=== PATIENT | female | born 1960 | race Two or more races ===

== ENCOUNTER 2016-05-07 18:16 | Emergency (ER) | payer SELFPAY ==
[~2016-05-07] VITALS: Ht 154.9 cm; Wt 62.6 kg
[~2016-05-07 18:16] MED LIST: BUDE10.2 IH; LISI-334 PO; METF500T4 PO; OMEP40CA5 PO; SIMV20TA3 PO; VENTOLIN HFA18 GM IH
[2016-05-07] MEDS ORDERED: IV NORMAL SALINE 1000ML BAG 1,000 ML IV SCH (19:29)
[2016-05-07] MEDS ORDERED: FENTANYL PF 100 MCG/2 ML VIAL. IV PRN (19:30)
[2016-05-07] MEDS ORDERED: ONDANSETRON PF 4 MG/2 ML VIAL. IV ONE (19:30)
[2016-05-07 19:38] LABS: BASO % 1 % (0-3); EOS % 3 % (0-3); HEMATOCRIT 36.5 % (36.0-47.0); HEMOGLOBIN 12.4 g/dL (12.0-15.5); LYMPH # 2.3 x10^3/uL (1.0-4.8); LYMPH % 26 % (24-48); MEAN CORPUSCULAR HEMOGLOBIN 29 pg (25-35); MEAN CORPUSCULAR HGB CONC 34 g/dL (31-37); MEAN CORPUSCULAR VOLUME 85 fL (79-100); MONO % 7 % (0-9); NEUT % 64 % (31-73); PLATELET COUNT 228 x10^3/uL (140-400); RED BLOOD COUNT 4.31 x10^6/uL (3.50-5.40); WHITE BLOOD COUNT 8.8 x10^3/uL (4.0-11.0)
[2016-05-07] MEDS ORDERED: FAMOTIDINE 20 MG/2 ML VIAL IVP ONE (20:00)
[2016-05-07 20:04] LABS: CALCIUM 11.1 mg/dL (8.5-10.1); CREATININE 0.6 mg/dL (0.6-1.0); GFR 103.8; POTASSIUM 4.3 mmol/L (3.5-5.1)
[2016-05-07 20:08] LABS: ALBUMIN 3.9 g/dL (3.4-5.0); ALBUMIN/GLOBULIN RATIO 1.1 (1.0-1.7); TOTAL BILIRUBIN 1.1 mg/dL (0.2-1.0); TOTAL PROTEIN 7.6 g/dL (6.4-8.2)
[2016-05-07 20:10] LABS: CKMB MASS 0.7 ng/mL (0.0-3.6); CREATINE KINASE 71 U/L (26-192)
[2016-05-07 20:49] LABS: BILIRUBIN,URINE NEGATIVE (NEG); GLUCOSE,URINE NEGATIVE (NEG); NITRITE,URINE NEGATIVE (NEG); PH,URINE 6.5; PROTEIN,URINE NEGATIVE (NEG-TRACE); UROBILINOGEN,URINE 0.2 mg/dL (0.2 mg/dL)
[2016-05-07 20:57] LABS: BACTERIA,URINE 0 /HPF (0-FEW); RBC,URINE RARE /HPF (0-2); SQUAMOUS EPITHELIAL CELL,UR OCC /LPF; WBC,URINE OCC /HPF (0-4)
[2016-05-07 21:58] VITALS: BP 105/58
--- NOTE | 2016-05-07 22:10 | RAD ---
Exam: Abdomen ultrasound Indication:upper abd pain Reason: epigastric and right upper quadrant abdominal pain, elevated bilirubin / Spl. Instructions: / History: Technique: Multiple realtime grayscale sonographic images were obtained over the abdomen. Static images were submitted for interpretation. Findings: The pancreas is poorly visualized due to overlying bowel gas. The IVC is patent. The aorta is normal in caliber. The liver is normal in size measuring 15.95 cm. There is increased echogenicity of the hepatic parenchyma compatible with diffuse fatty infiltration. No focal lesions are identified. The gallbladder is surgically absent. Common bile duct is within normal limits measuring 5-6 millimeters in diameter. The Right kidney is normal in size measuring 11.6 x 4.7 x 4.0 cm. There is no evidence for mass, nephrolithiasis, or hydronephrosis. No ascites is identified. Impression: - Diffuse fatty infiltration of the liver. - Prior cholecystectomy. Electronically signed by: Amol Neal (May 07, 2016 22:09:37)
--- NOTE | 2016-05-07 22:47 | PHYS DOC ---
Past Medical History Past Medical History: Asthma, Diabetes-Type II, GERD, High Cholesterol, Hypertension Past Surgical History: Cholecystectomy, Hysterectomy, Other Additional Past Surgical Histo: cyst removal from bilateral breasts Alcohol Use: None Drug Use: None Adult General Chief Complaint Chief Complaint: DIZZY/LIGHT HEADED HPI HPI Patient is a 55 year old female who presents with complaint of dizziness and generalized weakness. The patient states that she has been having symptoms over the past 4 days. Patient also notes that she has been having epigastric pain and bloating after eating. Patient has history of GERD and states that she had been on acid reducing medication in the past but is not taking it currently. Patient states that her dizziness gets worse if she sits up too quickly or turns her head too quickly. Patient describes the dizziness as a sensation of the room spinning. Patient states that she currently has 5 out of 10 pain in her upper abdomen. Patient has associated nausea but has not had vomiting or diarrhea. Patient denies any fevers. Review of Systems Review of Systems Constitutional: Generalized weakness, Denies fever or chills [] Eyes: Denies change in visual acuity, redness, or eye pain [] HENT: Denies nasal congestion or sore throat [] Respiratory: Denies cough or shortness of breath [] Cardiovascular: Denies chest pain or edema [] GI: Abdominal pain, nausea, denies vomiting, bloody stools or diarrhea [] : Denies dysuria or hematuria [] Musculoskeletal: Denies back pain or joint pain [] Integument: Denies rash or skin lesions [] Neurologic: Dizziness, denies focal weakness or sensory changes [] Endocrine: Denies polyuria or polydipsia [] Current Medications Current Medications Current Medications Medications (Trade) Dose Ordered Sig/Antoinette Start Time Stop Time Status Last Admin Dose Admin Famotidine (Pepcid) 20 mg 1X ONCE 05/07/16 20:00 05/07/16 20:01 DC 05/07/16 19:39 20 MG Fentanyl Citrate 50 mcg 50 mcg PRN Q15MIN PRN 05/07/16 19:30 05/07/16 23:20 DC 05/07/16 19:39 50 MCG Ondansetron HCl (Zofran) 4 mg 1X ONCE 05/07/16 19:30 05/07/16 19:34 DC 05/07/16 19:39 4 MG Sodium Chloride (Iv Sodium Chloride 0.9% 1000ml Bag) 1,000 ml @ 1,000 mls/hr Q1H 05/07/16 19:29 05/07/16 20:28 DC 05/07/16 19:38 1,000 MLS/HR Allergies Allergies Allergies Coded Allergies Type Severity Reaction Last Updated Verified No Known Drug Allergies 03/20/13 No Physical Exam Physical Exam Constitutional: Alert, afebrile, appears in mild discomfort. [] HENT: Normocephalic, atraumatic, bilateral external ears normal, oropharynx moist, no oral exudates, nose normal. [] Eyes: PERRLA, EOMI, conjunctiva normal, no discharge. [] Neck: Normal range of motion, no tenderness, supple, no stridor. [] Cardiovascular:Heart rate regular rhythm, no murmur [] Lungs & Thorax: Bilateral breath sounds clear to auscultation [] Abdomen: Bowel sounds normal, soft, mild epigastric tenderness palpation, no guarding or rebound tenderness, no masses, no pulsatile masses. [] Skin: Warm, dry, no erythema, no rash. [] Back: No tenderness, no CVA tenderness. [] Extremities: No tenderness, no cyanosis, no clubbing, ROM intact, no edema. [] Neurologic: Alert and oriented X 3, normal motor function, normal sensory function, no focal deficits noted. [] Current Patient Data Vital Signs Vital Signs Date Time Temp Pulse Resp B/P Pulse Ox O2 Delivery O2 Flow Rate FiO2 05/07/16 21:58 65 18 105/58 98 Room Air 05/07/16 18:25 98.4 98.4 Lab Values Laboratory Tests Test 05/07/16 18:40 05/07/16 20:45 White Blood Count 8.8x10^3/uL (4.0-11.0) Red Blood Count 4.31x10^6/uL (3.50-5.40) Hemoglobin 12.4g/dL (12.0-15.5) Hematocrit 36.5% (36.0-47.0) Mean Corpuscular Volume 85fL (79-100) Mean Corpuscular Hemoglobin 29pg (25-35) Mean Corpuscular Hemoglobin Concent 34g/dL (31-37) Red Cell Distribution Width 13.0% (11.5-14.5) Platelet Count 228x10^3/uL (140-400) Neutrophils (%) (Auto) 64% (31-73) Lymphocytes (%) (Auto) 26% (24-48) Monocytes (%) (Auto) 7% (0-9) Eosinophils (%) (Auto) 3% (0-3) Basophils (%) (Auto) 1% (0-3) Neutrophils # (Auto) 5.6x10^3uL (1.8-7.7) Lymphocytes # (Auto) 2.3x10^3/uL (1.0-4.8) Monocytes # (Auto) 0.6x10^3/uL (0.0-1.1) Eosinophils # (Auto) 0.2x10^3/uL (0.0-0.7) Basophils # (Auto) 0.0x10^3/uL (0.0-0.2) Sodium Level 139mmol/L (136-145) Potassium Level 4.3mmol/L (3.5-5.1) Chloride Level 103mmol/L (98-107) Carbon Dioxide Level 28mmol/L (21-32) Anion Gap 8 (6-14) Blood Urea Nitrogen 14mg/dL (7-20) Creatinine 0.6mg/dL (0.6-1.0) Estimated GFR (Cockcroft-Gault) 103.8 BUN/Creatinine Ratio 23 (6-20) H Glucose Level 158mg/dL (70-99) H Calcium Level 11.1mg/dL (8.5-10.1) H Total Bilirubin 1.1mg/dL (0.2-1.0) H Aspartate Amino Transferase (AST) 14U/L (15-37) L Alanine Aminotransferase (ALT) 25U/L (14-59) Alkaline Phosphatase 132U/L (46-116) H Creatine Kinase 71U/L (26-192) Creatine Kinase MB (Mass) 0.7ng/mL (0.0-3.6) Creatine Kinase MB Relative Index % (0-4) Troponin I Quantitative < 0.017ng/mL (0.000-0.055) Total Protein 7.6g/dL (6.4-8.2) Albumin 3.9g/dL (3.4-5.0) Albumin/Globulin Ratio 1.1 (1.0-1.7) Lipase 129U/L (73-393) Urine Color Yellow Urine Clarity Clear Urine pH 6.5 Urine Specific [place] <=1.005 Urine Protein Negativemg/dL (NEG-TRACE) Urine Glucose (UA) Negativemg/dL (NEG) Urine Ketones (Stick) Negativemg/dL (NEG) Urine Blood Negative (NEG) Urine Nitrite Negative (NEG) Urine Bilirubin Negative (NEG) Urine Urobilinogen Dipstick 0.2mg/dL (0.2 mg/dL) Urine Leukocyte Esterase Trace (NEG) Urine RBC Rare/HPF (0-2) Urine WBC Occ/HPF (0-4) Urine Squamous Epithelial Cells Occ/LPF Urine Bacteria 0/HPF (0-FEW) Laboratory Tests 05/07/16 18:40 Laboratory Tests 05/07/16 18:40 EKG EKG Interpreted by me: Heart rate 69, sinus rhythm, leftward axis, normal intervals , no acute ST/T-wave abnormalities present [] Radiology/Procedures Radiology/Procedures 3 view acute abdominal series interpreted by me: No pulmonary infiltrates or effusions, nonobstructive bowel gas pattern, no free air under the diaphragm [facility] [address] [place] [address] IMAGING REPORT Signed PATIENT: DIEGO ODONNELL ACCOUNT: [id number] : 1960 LOCATION: ER AGE: 55 SEX: F EXAM STATUS: REG ER ORD. PHYSICIAN: DOMINGA HINOJOSA MD REASON: epigastric and right upper quadrant abdominal pain, elevated bilirubin PROCEDURE: ABDOMEN LTD Exam: Abdomen ultrasound Indication:upper abd pain Reason: epigastric and right upper quadrant abdominal pain, elevated bilirubin / Spl. Instructions: / History: Technique: Multiple realtime grayscale sonographic images were obtained over the abdomen. Static images were submitted for interpretation. Findings: The pancreas is poorly visualized due to overlying bowel gas. The IVC is patent. The aorta is normal in caliber. The liver is normal in size measuring 15.95 cm. There is increased echogenicity of the hepatic parenchyma compatible with diffuse fatty infiltration. No focal lesions are identified. The gallbladder is surgically absent. Common bile duct is within normal limits measuring 5-6 millimeters in diameter. The Right kidney is normal in size measuring 11.6 x 4.7 x 4.0 cm. There is no evidence for mass, nephrolithiasis, or hydronephrosis. No ascites is identified. Impression: - Diffuse fatty infiltration of the liver. - Prior cholecystectomy. Electronically signed by: Amol Gibson (May 07, 2016 22:09:37) DICTATED and SIGNED BY: AMOL GIBSON MD DATE: 05/07/162208 CC: DOMINGA HINOJOSA MD; NO PCP ~ [] Course & Med Decision Making Course & Med Decision Making Pertinent Labs and Imaging studies reviewed. (See chart for details) Fentanyl, Zofran, and Pepcid were given to patient as well as IV fluids. On reevaluation, patient states that her symptoms have improved. Patient will be discharged with meclizine for motion sickness and Pepcid and Zofran for GI complaints. Advised follow-up in the next 3-5 days a primary doctor and return to emergency department for any worsening symptoms. Patient voiced understanding and in agreement with treatment plan. Dragon Disclaimer Dragon Disclaimer This electronic medical record was generated, in whole or in part, using a voice recognition dictation system. Departure Departure Impression: Primary Impression: Vertigo Additional Impressions: Abdominal pain Fatty liver GERD (gastroesophageal reflux disease) Disposition: 01 HOME, SELF-CARE Condition: IMPROVED Referrals: NO PCP (PCP) Patient Instructions: Abdominal Pain (Nonspecific), Vertigo Additional Instructions: You had an ultrasound that showed evidence of fatty liver disease but no other abnormalities. This is a condition that can be caused by elevated amounts of lipids in your blood. It is recommended that you follow-up with your primary doctor to have further cholesterol and triglyceride studies done. Return to the emergency department for any worsening symptoms. Scripts Famotidine (Pepcid)20 Mg Iymtpn13 Mg PO BID #30 TAB Prov:DOMINGA HINOJOSA MD 05/07/16 Ondansetron (Zofran Odt)4 Mg Tab.rapdis4 Mg PO Q6-8HRS PRN NAUSEA/VOMITING #10 TAB Prov:DOMINGA HINOJOSA MD 05/07/16 Meclizine Hcl 25 Mg Tablet1 Tab PO TID PRN DIZZINESS #30 TAB Prov:DOMINGA HINOJOSA MD 05/07/16 Problem Qualifiers Additional Impressions: Abdominal pain Abdominal location: epigastric Qualified Code: R10.13 - Epigastric pain GERD (gastroesophageal reflux disease) Esophagitis presence: without esophagitis Qualified Code: K21.9 - Gastro- esophageal reflux disease without esophagitis DOMINGA HINOJOSA MD May 07, 2016 22:47
[2016-05-07] MEDS ORDERED: MECL25TA3 PO (22:54)
[2016-05-07] MEDS ORDERED: FAMO-63 PO (22:54)
[2016-05-07] MEDS ORDERED: ONDA4TAB10 PO (22:54)
--- NOTE | 2016-05-08 06:39 | EKG ---
[facility] [address] [place] [address] Test Date: 2016-05-07 Test Time: 19:03:03 Pat Name: DIEGO ODONNELL Department: Room: Gender: F Financial Reporting Director: : 1960 Requested By: DOMINGA HINOJOSA Order Number: [id number] Reading MD: Measurements Intervals [place] Rate: 69 P: 29 IA: 178 QRS: -10 QRSD: 94 T: 53 QT: 376 QTc: 409 Interpretive Statements SINUS RHYTHM LEFTWARD AXIS QRS(T) CONTOUR ABNORMALITY CONSIDER ANTEROSEPTAL MYOCARDIAL DAMAGE RI6.01 Unconfirmed report No previous ECG available for comparison
--- NOTE | 2016-05-08 08:03 | RAD ---
Indication epigastric pain for 3 days with nausea and vomiting. A single view of the chest was obtained as well as flat and upright films of the abdomen. No prior imaging of the chest or abdomen is available. The heart and pulmonary vessels appear normal. The lungs are clear of acute infiltrates. There are probable calcified granulomas in the right lung. There is no free air. Clips are seen in the gallbladder fossa. The abdominal gas pattern has a nonobstructive appearance. Some gas in small bowel loops in the left abdomen is a nonspecific finding. No organomegaly or abnormal calculi are seen. There are some degenerative changes noted in the lower lumbar spine. IMPRESSION: No acute finding seen in the chest or abdomen on plain films
== END 2016-05-07 23:20 | disposition home or self-care (01) ==
LOC: ER 18:16
DX: R42 Dizziness and giddiness (principal); K21.9 Gastro-esophageal reflux disease without esophagitis; K76.0 Fatty (change of) liver, not elsewhere classified; E11.9 Type 2 diabetes mellitus without complications; E78.00 Pure hypercholesterolemia, unspecified; I10 Essential (primary) hypertension; J45.909 Unspecified asthma, uncomplicated; T75.3XXA Motion sickness, initial encounter; Z90.49 Acquired absence of other specified parts of digestive tract; Z90.710 Acquired absence of both cervix and uterus
CPT/HCPCS: 36415; 74022; 76705; 80053; 81001; 82553; 83690; 84484; 85027; 87086; 93005; 96361; 96374; 96375; 99285; J2405; J3010; J7030; S0028

== ENCOUNTER 2017-05-26 18:09 | Emergency (ER) | payer SELFPAY | END 2017-05-26 18:55 | disposition home or self-care (01) | LOC: ER 18:09 | DX: M54.42 Lumbago with sciatica, left side (principal); E11.9 Type 2 diabetes mellitus without complications; E78.00 Pure hypercholesterolemia, unspecified; J45.909 Unspecified asthma, uncomplicated; I10 Essential (primary) hypertension; K21.9 Gastro-esophageal reflux disease without esophagitis; Z90.710 Acquired absence of both cervix and uterus; Z90.49 Acquired absence of other specified parts of digestive tract | CPT/HCPCS: 99283 ==